=== PATIENT | female | born 1935 | race Caucasian/White ===

== ENCOUNTER 2020-11-09 06:37 | Inpatient (IN) | payer MEDICARE ==
[~2020-11-09] VITALS: Ht 152.4 cm; Wt 64.1 kg
[~2020-11-09 06:37] MED LIST: ADULT LOW DOSE81 MG PO; ALLEGRA ALLERGY60 MG PO; CEFUROXIME250 MG PO; ELIQUIS2.5 MG PO; FERROUS SULFAT325 M2 PO; GLUCOTROL XL 22.5 MG PO; HYDRALAZINE HCL50 MG PO; LANTUS100 UNIT/1 SQ; LASIX40 MG PO; LIPITOR TAB 2020 MG PO; LOPRESSOR 25 MG25 MG PO; METHIMAZOLE5 MG PO; MULTIVITAMINS1 EAC1 PO; NORVASC 5 MG TAB5 MG PO; OMEPRAZOLE40 MG PO; OXYCODONE HCL5 MG PO; SENOKOT-S TABL1 EACH PO; VENTOLIN/PROVE0.5 ML INH
[2020-11-09] MEDS ORDERED: PROAIR DIGIHAL90 MCG INH (17:49)
[2020-11-09] MEDS ORDERED: NORVASC5 MG PO (17:50)
[2020-11-09] MEDS ORDERED: ALLOPURINOL100 MG PO (17:51)
[2020-11-09] MEDS ORDERED: CATAPRES 0.1MG0.1 MG PO (17:52)
[2020-11-09] MEDS ORDERED: CYMBALTA30 MG PO (17:53)
[2020-11-09] MEDS ORDERED: COLACE100 MG PO (17:53)
[2020-11-09] MEDS ORDERED: PROZAC20 MG PO (17:54)
[2020-11-09] MEDS ORDERED: METOPROLOL SUC100 MG PO (17:59)
[2020-11-09] MEDS ORDERED: PROTONIX40 MG PO (18:00)
[2020-11-09] MEDS ORDERED: OXYCODON-ACETA1 EAC1 PO (18:00)
[2020-11-09] MEDS ORDERED: FLOVENT DISKUS50 MCG INH (18:02)
[2020-11-09] MEDS ORDERED: HYDROXYCHLOROQ200 MG PO (18:02)
[2020-11-09] MEDS ORDERED: INSULIN AS100 UNIT/2 SQ (18:03)
[2020-11-09] MEDS ORDERED: IPRAT-ALBUT 0.5-3 ML INH (18:03)
[2020-11-09] MEDS ORDERED: PRINIVIL20 MG PO (18:04)
[2020-11-09] MEDS ORDERED: MAG-OX 400 TAB400 MG PO (18:04)
[2020-11-09] MEDS ORDERED: K-DUR TAB 20 M20 MEQ PO (18:05)
[2020-11-09] MEDS ORDERED: SINGULAIR10 MG PO (18:05)
[2020-11-09] MEDS ORDERED: ZOFRAN ODT 4 MG4 MG PO (18:05)
[2020-11-09] MEDS ORDERED: TIZANIDINE HCL2 MG PO (18:06)
[2020-11-09] MEDS ORDERED: DONEPEZIL HCL5 MG PO (18:06)
[2020-11-09] MEDS ORDERED: SUCRALFATE1 GM PO (18:06)
[2020-11-09] MEDS ORDERED: MELATONIN1 MG PO (18:07)
[2020-11-09] MEDS ORDERED: MEGACE 400400 MG/10 PO (18:07)
[2020-11-09 19:15] LABS: HEMOGLOBIN 8.9 gm/dl (12.3-15.3); RED BLOOD COUNT 3.05 M/UL (4.00-5.10); WHITE BLOOD COUNT 11.7 K/UL (4.5-11.0)
[2020-11-10 03:39] LABS: HEMOGLOBIN 9.1 gm/dl (12.3-15.3); RED BLOOD COUNT 3.1 M/UL (4.00-5.10); WHITE BLOOD COUNT 12.3 K/UL (4.5-11.0)
[2020-11-10 12:55] LABS: HEMOGLOBIN 7.9 gm/dl (12.3-15.3)
[2020-11-10 13:06] LABS: RED BLOOD COUNT 2.72 M/UL (4.00-5.10); WHITE BLOOD COUNT 20.9 K/UL (4.5-11.0)
[2020-11-11 03:03] LABS: HEMOGLOBIN 7.4 gm/dl (12.3-15.3); RED BLOOD COUNT 2.54 M/UL (4.00-5.10); WHITE BLOOD COUNT 14.6 K/UL (4.5-11.0)
[2020-11-12 02:52] LABS: WHITE BLOOD COUNT 13.7 K/UL (4.5-11.0)
[2020-11-12 02:57] LABS: RED BLOOD COUNT 2.11 M/UL (4.00-5.10)
[2020-11-12 02:59] LABS: HEMOGLOBIN 6.2 gm/dl (12.3-15.3)
[2020-11-13 03:24] LABS: WHITE BLOOD COUNT 12.1 K/UL (4.5-11.0)
[2020-11-13 03:25] LABS: HEMOGLOBIN 9.6 gm/dl (12.3-15.3); RED BLOOD COUNT 3.38 M/UL (4.00-5.10)
[2020-11-14 05:42] LABS: HEMOGLOBIN 9.4 gm/dl (12.3-15.3); RED BLOOD COUNT 3.28 M/UL (4.00-5.10); WHITE BLOOD COUNT 10.6 K/UL (4.5-11.0)
--- NOTE | 2020-11-14 06:11 | NUR ---
SOAP SUDS ENEMA ADMINISTERED PER ORDER, PATIENT TOLERATED WELL. NO S/SX OF PAIN, DISCOMFORT, OR DISTRESS. BED LOCKED AND LOW, CALL LIGHT WITHIN REACH.---LOIDA LEUNG.
[2020-11-15 06:01] LABS: HEMOGLOBIN 9.3 gm/dl (12.3-15.3); RED BLOOD COUNT 3.22 M/UL (4.00-5.10); WHITE BLOOD COUNT 11.7 K/UL (4.5-11.0)
[2020-11-15] MEDS ORDERED: OXYCODONE HCL5 MG PO (11:56)
== END 2020-11-15 17:59 | disposition home or self-care (01) | DRG 480 ==
LOC: M/S 17:20
PROVIDERS: Internal Medicine Nephrology; Orthopaedic Surgery; Physician Assistant; ADMIT Internal Medicine
PROC: 0QS606Z Reposition Right Upper Femur with Intramedullary Internal Fixation Device, Open Approach (ICD-10-PCS; principal; 2020-11-10 10:35)
PROC: 30233N1 Transfusion of Nonautologous Red Blood Cells into Peripheral Vein, Percutaneous Approach (ICD-10-PCS; 2020-11-12)
DX: S72.141A Displaced intertrochanteric fracture of right femur, initial encounter for closed fracture (principal); N17.0 Acute kidney failure with tubular necrosis; G93.41 Metabolic encephalopathy; D62 Acute posthemorrhagic anemia; N18.4 Chronic kidney disease, stage 4 (severe); N30.00 Acute cystitis without hematuria; D50.9 Iron deficiency anemia, unspecified; S62.501A Fracture of unspecified phalanx of right thumb, initial encounter for closed fracture; W01.0XXA Fall on same level from slipping, tripping and stumbling without subsequent striking against object, initial encounter; K59.00 Constipation, unspecified; I48.0 Paroxysmal atrial fibrillation; Z20.822 Contact with and (suspected) exposure to COVID-19; E05.90 Thyrotoxicosis, unspecified without thyrotoxic crisis or storm; E78.5 Hyperlipidemia, unspecified; I12.9 Hypertensive chronic kidney disease with stage 1 through stage 4 chronic kidney disease, or unspecified chronic kidney disease; I08.3 Combined rheumatic disorders of mitral, aortic and tricuspid valves; I65.29 Occlusion and stenosis of unspecified carotid artery; I37.1 Nonrheumatic pulmonary valve insufficiency; I25.10 Atherosclerotic heart disease of native coronary artery without angina pectoris; K21.9 Gastro-esophageal reflux disease without esophagitis; F03.90 Unspecified dementia, unspecified severity, without behavioral disturbance, psychotic disturbance, mood disturbance, and anxiety; E11.22 Type 2 diabetes mellitus with diabetic chronic kidney disease; I27.20 Pulmonary hypertension, unspecified; B96.1 Klebsiella pneumoniae [K. pneumoniae] as the cause of diseases classified elsewhere; I49.5 Sick sinus syndrome; F32.9 Major depressive disorder, single episode, unspecified; E86.0 Dehydration; Z79.01 Long term (current) use of anticoagulants; Y93.9 Activity, unspecified; Y92.009 Unspecified place in unspecified non-institutional (private) residence as the place of occurrence of the external cause; Z95.0 Presence of cardiac pacemaker; Z86.73 Personal history of transient ischemic attack (TIA), and cerebral infarction without residual deficits; Z95.1 Presence of aortocoronary bypass graft; Z79.899 Other long term (current) drug therapy; Z79.4 Long term (current) use of insulin; Z90.49 Acquired absence of other specified parts of digestive tract; Z83.3 Family history of diabetes mellitus; Z80.0 Family history of malignant neoplasm of digestive organs
CPT/HCPCS: ECHO; 36415; 36430; 70450; 71045; 72170; 73110; 73502; 73552; 76000; 80048; 80053; 81001; 82803; 82962; 83735; 84439; 84443; 85025; 85027; 85610; 86850; 86900; 86901; 86920; 87077; 87086; 87186; 93005; 93306; 94760; 97110; 97110-GP-CQ; 97162; 97530; 97530-GP-CQ; C1713; J0690; J0696; J1100; J1644; J2001; J2270; J2405; J2704; J2710; J3010; J7030; J7120; P9016; U0002